=== PATIENT | male | born 1985 | race Two or more races ===

== ENCOUNTER 2020-12-21 19:56 | Emergency (ER) | payer SELFPAY ==
[~2020-12-21] VITALS: Ht 160 cm; Wt 78.0 kg
[2020-12-21 20:03] VITALS: BP 133/82
--- NOTE | 2020-12-21 20:07 | NUR ---
PT TAKEN TO BED 9
--- NOTE | 2020-12-21 20:15 | NUR ---
35/M BIB C/O LEFT EYE PAIN/DISCOMFORT; PT STATES HE WAS CUTTING METAL WHEN IT FLEW IN HIS EYE TODAY. UPON ASSESSMENT EYE REDNESS NOTED. MED HX: DENIES ALLERGIES: NKA
[2020-12-21] MEDS ORDERED: FLUORESCEIN OPTH STRIP 1 MG ONE (20:17)
[2020-12-21] MEDS ORDERED: TETRACAINE HCL/PF 0.5% OPTH 4 ML BTL ONE (20:17)
--- NOTE | 2020-12-21 20:20 | NUR ---
Dr. Pratt examining patient.
[2020-12-21 21:39] VITALS: BP 133/82
--- NOTE | 2020-12-21 21:39 | NUR ---
Patient discharged with v/s stable. Written and verbal after care instructions given and explained. Patient verbalized understanding. Ambulatory with steady gait. All questions addressed prior to discharge. Advised to follow up with PMD.
== END 2020-12-21 21:39 | disposition home or self-care (01) ==
LOC: MED 19:56
DX: S05.52XA Penetrating wound with foreign body of left eyeball, initial encounter (principal); X58.XXXA Exposure to other specified factors, initial encounter; Y93.89 Activity, other specified; Y92.89 Other specified places as the place of occurrence of the external cause; Y99.8 Other external cause status
CPT/HCPCS: 99282